=== PATIENT | male | born 1990 | race Caucasian/White ===

== ENCOUNTER 2016-03-15 00:40 | Emergency (ER) | payer SELFPAY ==
[~2016-03-15] VITALS: Ht 157.5 cm; Wt 61.2 kg
[2016-03-15 01:07] VITALS: BP 124/80
[2016-03-15] MEDS ORDERED: IBUPROFEN600 MG ORAL (01:53)
[2016-03-15 01:55] VITALS: BP 120/76
[2016-03-15 02:00] VITALS: BP 120/76
--- NOTE | 2016-03-15 08:12 | Emergency Room Report ---
History of Present Illness General Chief Complaint: Pain Source: Patient Present Illness HPI Patient is a 26-year-old male who presented after increased pain to his the fourth finger. The patient reported having injury approximately 6 months ago. Patient said he was previously diagnosed with mallet finger. Patient had prior prior x-rays he reported having increased pain. Patient stated that he had been seen by a doctor who stated that his finger had been malaligned. The patient had been in a splint but had not been using the splint.Patient denied any fever. He denied any numbness to the tip of his fingers.He reported having continued pain to the finger. Allergies: Coded Allergies: No Known Allergies (Unverified , 03/15/16) Patient History Past Medical History: see triage record Reviewed Nursing Documentation: PMH: Agreed, PSxH: Agreed Nursing Documentation-PM Past Medical History: No Stated History Physical Exam Vital Signs Date Time Temp Pulse Resp B/P Pulse Ox O2 Delivery O2 Flow Rate FiO2 03/15/16 00:58 97.9 108 16 126/83 100 Room Air Medical Decision Making Diagnostic Impression: Primary Impression: Finger sprain ER Course Patient presented for finger pain. Differential diagnoses included was not limited to fracture, dislocation, sprain among others. Patient given a swan- neck deformity. The patient was noted to have a benign exam and did not appear to require x-rays this time. Patient stated he had previously had x- rays done and that he had recently been diagnosed with a mallet finger. The patient is advised followup with a hand surgeon. Patient was advised that he should take nonsteroidal anti-inflammatory medications for his pain. The patient appeared have good perfusion to his finger. The patient is advised to follow up with primary care doctor in 1-2 days. Patient is advised to return if any worsening condition or if any changes in status that are concerning. Last Vital Signs Date Time Temp Pulse Resp B/P Pulse Ox O2 Delivery O2 Flow Rate FiO2 03/15/16 02:00 97.9 82 16 120/76 99 Room Air Status: improved Disposition: HOME, SELF-CARE Condition: Stable Scripts Ibuprofen* (MOTRIN*) 600 Mg Tablet 600 MG ORAL Q8H Y for For Pain, #30 TAB 0 Refills Prov: Tano Ty 03/15/16 Referrals: NOT CHOSEN IPA/MD,REFERRING (PCP) Patient Instructions: Finger Sprain Tano Ty Mar 15, 2016 08:12
== END 2016-03-15 02:20 | disposition home or self-care (01) ==
LOC: EMR 02:03
DX: S63.695A Other sprain of left ring finger, initial encounter (principal); X58.XXXA Exposure to other specified factors, initial encounter; Y92.009 Unspecified place in unspecified non-institutional (private) residence as the place of occurrence of the external cause
CPT/HCPCS: 99283